=== PATIENT | female | born 1990 | race Two or more races ===

== ENCOUNTER 2024-04-23 12:31 | Emergency (ER) | payer MEDICAID, SELFPAY ==
[2024-04-23 12:50] VITALS: BP 127/84; PULSE 94; RESP 20; TEMP 36.8; O2SAT 98; BMI 43.7
--- NOTE | 2024-04-23 13:16 | XR_ITS ---
Examination: PA lateral chest 2 views Technique: Upright PA lateral chest 2 views Exam date and time: April 23, 2024 1348 hrs. Indications: Chest pain beginning 10 days ago. Findings: Normal heart size Lungs are clear The osseous structures are intact Impression: No active disease
--- NOTE | 2024-04-23 13:16 | PD.EDURI ---
Upper Respiratory Inf. RME/HPI General Chief Complaint: Ear Stated Complaint: RIGHT EAR PAIN, H/A, COUGH X 1 WK; Time Seen by Provider: 04/23/24 12:52 Source: patient Arrival date/time: 04/23/24 12:31 33-year-old female presents emergency department complaining of right ear pain, cough, and headache that is been ongoing for over 1 week. Patient reports recently completed amoxicillin for right ear infection. Mode of arrival: ambulatory Limitations: no limitations Related Data Home Medications ?Medication ?Instructions ?Recorded ?Confirmed cholecalciferol (vitamin D3) 50 50 mcg PO QWEEK 09/30/21 09/30/21 mcg (2,000 unit) tablet (Vitamin D3) sulfamethoxazole 800 1 tab PO BID 09/30/21 09/30/21 mg-trimethoprim 160 mg tablet (Bactrim DS) Previous Rx's ?Medication ?Instructions ?Recorded ibuprofen 800 mg tablet 800 mg PO TID PRN pain #30 tabs 09/17/22 ibuprofen 600 mg tablet 600 mg PO Q6H PRN pain #30 tabs 05/31/23 methocarbamol 500 mg tablet 500 mg PO Q8H PRN muscle pain #30 05/31/23 tabs albuterol sulfate 90 mcg/actuation 2 puff inhalation Q6H PRN 04/23/24 aerosol inhaler (Ventolin HFA) shortness of breath or wheezing #6.7 grams Allergies Allergy/AdvReac Type Severity Reaction Status Date / Time No Known Allergies Allergy Verified 04/23/24 12:33 Review of Systems Review of Systems Systems Reviewed: All systems reviewed, normal except as documented Constitutional Constitutional: Reports system reviewed and no additional complaints, except as documented, Denies body ache(s), Denies chills, Denies fever(s) and Reports headache(s) Eyes Eyes: Reports system reviewed and no additional complaints, except as documented and Denies change in vision ENT Ears, Nose, Mouth, and Throat: Reports system reviewed and no additional complaints, except as documented, Denies disequilibrium, Denies dizziness, Reports otalgia, Reports headache(s), Denies sore throat and Denies vertigo Cardiovascular Cardiovascular: Reports system reviewed and no additional complaints, except as documented, Denies chest pain and Denies dyspnea Respiratory Respiratory: Reports system reviewed and no additional complaints, except as documented, Denies chest congestion, Reports cough and Denies dyspnea Gastrointestinal Gastrointestinal: Reports system reviewed and no additional complaints, except as documented, Denies abdominal pain, Denies nausea and Denies vomiting Musculoskeletal Musculoskeletal: Reports system reviewed and no additional complaints, except as documented, Denies abnormal gait and Denies arthralgias Integumentary/Breasts Skin/Breast: Reports system reviewed and no additional complaints, except as documented, Denies erythema, Denies rash and Denies wounds Neurologic Neurologic: Reports system reviewed and no additional complaints, except as documented, Denies abnormal gait, Denies disequilibrium, Denies dizziness, Reports headache(s) and Denies vertigo Past Medical History Past Medical History NEUROLOGIC: Positive Neurological Disorders and Migraine CARDIAC: Negative Cardiac Disorders or Congestive Heart Failure RESPIRATORY: Negative Chronic Obstructive Pulmonary Disease (COPD) GASTROINTESTINAL: Negative Gastrointestinal Disorders GENITOURINARY: Negative Genitourinary Disorders or Renal Disease MUSCULOSKELETAL: Negative Musculoskeletal Disorders ENDOCRINE: Negative Endocrine Disorders, Diabetes Mellitus Type 1 or Diabetes Mellitus Type 2 HEMATOLOGIC: Negative Blood Disorders Social History SMOKING STATUS: Never smoker SUBSTANCE USE: does not use ED Exam General Limitations: Present no limitations General appearance: Present alert and in no apparent distress Head Head exam: Present atraumatic Eye Eye exam: Present normal appearance, PERRL and EOMI ENT ENT exam: Present normal exam, normal oropharynx and mucous membranes moist Expanded ENT Exam External ear exam: Present normal external inspection Mouth exam: Present normal external inspection Throat exam: Present tonsillar erythema; Absent tonsillomegaly, tonsillar exudate or muffled voice Neck Neck exam: Present normal inspection, full ROM and trachea midline Chest Chest inspection: Present normal inspection and symmetric chest wall rise Respiratory Respiratory exam: Present normal lung sounds bilaterally Cardiovascular Cardiovascular exam: Present regular rate, normal rhythm and normal heart sounds Abdominal Exam Abdominal exam: Present soft and normal bowel sounds Extremities Exam Extremities exam: Present normal inspection and full ROM Back Exam Back exam: Present normal inspection and full ROM Neurological Exam Neurological exam: Present alert, oriented X3 and CN II-XII intact Psychiatric Psychiatric exam: Present normal affect and normal mood Skin Skin exam: Present warm, dry, intact and normal color Course Quality Measures none Orders Category Date Time Status Bedside COVID-19 Antigen Test NOW Care 04/23/24 13:16 Completed Bedside Influenza A&B Antigen Test NOW Care 04/23/24 13:16 Completed XR chest 2V Stat Exams 04/23/24 13:16 Completed Strep A Rapid Stat Lab 04/23/24 13:30 Completed Vital Signs Vital signs: Vital Signs Temperature 98.2 F 04/23/24 12:50 Pulse Rate 94 04/23/24 12:50 Respiratory Rate 20 04/23/24 12:50 Blood Pressure 127/84 04/23/24 12:50 Pulse Oximetry (%) 98 04/23/24 12:50 Oxygen Delivery Method Room Air 04/23/24 12:50 98% RA WNL. Upper Respiratory Infection MDM Narrative MDM Narrative:: 33-year-old female presents emergency department complaining of right ear pain, cough, and headache that is been ongoing for over 1 week. Patient reports recently completed amoxicillin for right ear infection. Chest XR no acute process. Strep, Influenza, and covid swabs negative. Bilateral ears no erythema, bulging tympanic membrane, discharge, or signs of infection. Patient appears non toxic and hemodynamically stable. Patient data External records reviewed:: [facility] previous records Clinical information provided by:: patient Social determinants that could affect healthcare access:: none Patient has the following chronic illnesses:: n/a How is presenting disease/condition affected by chronic disease/condition?: no chronic disease Evaluation data The following diagnostics were reviewed and interpreted by me:: lab results and radiology exam(s) Lab and/or radiology exams considered but not ordered:: ordered Interpretation Summary: interpreted by me Medications / Prescriptions Medications or Prescriptions considered but not ordered:: n/a Medication administrations:: n/a Consultations Consultation(s) initiated? (list below): No Diagnosis Upper Respiratory Differential Diagnosis: upper respiratory infection, croup, otitis media, sinusitis, viral infection, bronchitis, influenza and pharyngitis Most likely diagnosis given after review of the tests above:: viral infection Admission Indicated Admission indicated?: not indicated Admission Request Was there a request for admission?: No Disposition Plan Disposition Plan: Discharge Discharge Attestation Discharge Attestation: The patient and all family members were given an opportunity to ask questions and understood the discharge instructions. Discharge instructions specifically effects, indications for sooner follow up or return to the emergency department, and the expected course of current diagnosis. Patient condition: Stable Discharge Plan Plan Patient Disposition: HOME (Self Care) Disposition Comment: Stable Prescriptions/Referrals Prescriptions/Med Rec: New albuterol sulfate [Ventolin HFA] 90 mcg/actuation HFA aerosol inhaler 2 puff inhalation Q6H PRN (Reason: shortness of breath or wheezing) Qty: 6.7 0RF No Action sulfamethoxazole-trimethoprim [Bactrim DS] 800-160 mg Tablet 1 tab PO BID cholecalciferol (vitamin D3) [Vitamin D3] 50 mcg (2,000 unit) Tablet 50 mcg PO QWEEK ibuprofen 800 mg tablet 800 mg PO TID PRN (Reason: pain) Qty: 30 0RF ibuprofen 600 mg tablet 600 mg PO Q6H PRN (Reason: pain) Qty: 30 0RF methocarbamol 500 mg tablet 500 mg PO Q8H PRN (Reason: muscle pain) Qty: 30 0RF Referrals: Chey Montalvo FNP [Primary Care Provider] - In 1 week Problem List Clinical Impression: Viral syndrome Patient/Caregiver Discharge Instructions Education Materials: ED Viral Syndrome (Adult) Additional Instructions: Take [id number] ibuprofen or Tylenol as needed for fever or pain. Close follow-up with primary care provider in 24 to 48 hours. Use inhaler as needed. Return to the emergency department for any worsening symptoms or as needed. Print Language: Taiwanese Stand Alone Forms: Marika Award Info., Patient Portal Info Letter MARCI/SUSY Supervising Physician MARCI/SUSY Supervising Physician: Dr. Sheldon
[2024-04-23 13:54] LABS: Strep A Rapid Negative (Negative)
--- NOTE | 2024-04-23 16:04 | PC.NURSE ---
Called Radiology about reading xray, per Lianne section laborer states radiologists reading exams right now.
== END 2024-04-23 16:16 | disposition home or self-care (01) ==
PROVIDERS: Emergency Provider Emergency Medicine; PCP Nurse Practitioner Family
DX: B34.9 Viral infection, unspecified (principal)
CPT/HCPCS: 71046; 87400; 87651; 87811; 99283

== ENCOUNTER 2024-04-28 22:23 | Emergency (ER) | payer MEDICAID, SELFPAY ==
[2024-04-28 22:26] VITALS: BMI 43.4
[2024-04-28 23:21] VITALS: BP 169/105; BP 181/117; PULSE 91; RESP 18; TEMP 37.2; O2SAT 96
--- NOTE | 2024-04-29 00:46 | XR_ITS ---
Examination: CT soft tissue neck, without intravenous contrast. 2-D coronal reconstructions. 2-D sagittal reconstructions. Date and time of exam :April 29, 2024 0129 hours INDICATIONS: Right ear and jaw pain beginning one week ago. CTDI: vol (mGy):15.5 DLP: (mGycm):411 Technique: 1.25 mm axial sections of the neck of the obtained. Coronal and sagittal reconstructions have been obtained. Low dose protocols were performed. One or more of the following dose reduction techniques were used; automated exposure control, adjustment of the mA and/or KV according to patient size, use of iterative reconstruction technique. Findings: Symmetrical nasopharynx oropharynx Numerous nonspecific carotid triangle posterior cervical submental lymph nodes The larynx appears normal Thyroid lobes are not enlarged Normal epiglottis Lung apices clear No cortical bone destruction involving the mandible or maxilla Mild chronic mucosal disease ethmoid air cells maxillary antra sphenoid air cells Negative for otitis media Negative for acute mastoiditis IMPRESSION: No osteomyelitis identified Cervical lymphadenopathy as above, suggest ultrasound soft tissue neck 3 month follow-up to document stability of this cervical lymphadenopathy
[2024-04-29] MEDS: DEXAMETHASONE SOD PHOS INJ 10 MG/ML VIAL PO (01:20)
[2024-04-29 02:01] VITALS: PULSE 103; RESP 20; O2SAT 99
[2024-04-29] MEDS: ALBUTEROL/IPRATROPIUM (Duoneb) RT SOL 3 ML NEBU 6 ML INH (02:01)
--- NOTE | 2024-04-29 04:00 | PRELIM_ITS ---
CT scan of the neck without intravenous contrast (axial sections with sagittal and coronal reformats) April 29, 2024 at 0129 hours Clinical History: Right neck/jaw pain; r/o osteomyelitis. Comparison : No prior study is available for comparison. Findings: The nasopharynx, oropharynx, hypopharynx, sup raglottic and infraglottic larynx, vocal cords and upper trachea are unremarkable. The epiglottis and aryepiglottic folds appear unremarkable.The superficial soft tissues of the neck are unremarkable. T he osseous structures are unremarkable. There is mild mucosal thickening in bilateral maxillary sinus es. Impression:No evidence of osteomyelitis. Report Electronically Signed By: Ivan Ponce 04/29/2024 3 :59:46 AM [EST]
[2024-04-29] MEDS: DOXYCYCLINE 100 MG TABLET PO (04:33)
--- NOTE | 2024-04-29 05:26 | EDNOTE_ITS ---
ED Headache RME/HPI General Chief Complaint: General Adult/Misc Complain Stated Complaint: Right ear, jaw pain Time Seen by Provider: 04/29/24 00:14 Arrival date/time: 04/28/24 22:23 33F with history of asthma presents to ED with 2 weeks of R ear/jaw pain. Patient was put on 1 week of Augmentin w/o relief. Separately, patient has had a few days of wheezing. Limitations: no limitations Related Data Home Medications ?Medication ?Instructions ?Recorded ?Confirmed cholecalciferol (vitamin D3) 50 50 mcg PO QWEEK 09/30/21 09/30/21 mcg (2,000 unit) tablet (Vitamin D3) sulfamethoxazole 800 1 tab PO BID 09/30/21 09/30/21 mg-trimethoprim 160 mg tablet (Bactrim DS) Previous Rx's ?Medication ?Instructions ?Recorded ibuprofen 800 mg tablet 800 mg PO TID PRN pain #30 tabs 09/17/22 ibuprofen 600 mg tablet 600 mg PO Q6H PRN pain #30 tabs 05/31/23 methocarbamol 500 mg tablet 500 mg PO Q8H PRN muscle pain #30 05/31/23 tabs albuterol sulfate 90 mcg/actuation 2 puff inhalation Q6H PRN 04/23/24 aerosol inhaler (Ventolin HFA) shortness of breath or wheezing #6.7 grams doxycycline hyclate 100 mg tablet 100 mg PO BID 10 days #20 tabs 04/29/24 prednisone 50 mg tablet 50 mg PO QDAY 5 days #5 tabs 04/29/24 Allergies Allergy/AdvReac Type Severity Reaction Status Date / Time No Known Allergies Allergy Verified 04/28/24 22:29 Review of Systems Review of Systems Systems Reviewed: All systems reviewed, normal except as documented Constitutional Constitutional: Reports system reviewed and no additional complaints, except as documented, Denies fever(s) and Denies headache(s) ENT Ears, Nose, Mouth, and Throat: Reports as per HPI, Denies disequilibrium, Denies headache(s) and Reports other (R jaw/facial pain) Cardiovascular Cardiovascular: Reports system reviewed and no additional complaints, except as documented, Denies chest pain and Denies dyspnea Respiratory Respiratory: Reports system reviewed and no additional complaints, except as documented, Reports as per HPI, Denies cough, Denies dyspnea and Reports wheezing Gastrointestinal Gastrointestinal: Reports system reviewed and no additional complaints, except as documented, Denies abdominal pain, Denies nausea and Denies vomiting Neurologic Neurologic: Reports system reviewed and no additional complaints, except as documented, Denies confusion, Denies disequilibrium and Denies headache(s) Psychiatric Psychiatric: Denies confusion Allergic/Immunologic Allergic/Immunologic: Reports wheezing Past Medical History Past Medical History NEUROLOGIC: Positive Neurological Disorders and Migraine CARDIAC: Negative Cardiac Disorders or Congestive Heart Failure RESPIRATORY: Negative Chronic Obstructive Pulmonary Disease (COPD) GASTROINTESTINAL: Negative Gastrointestinal Disorders GENITOURINARY: Negative Genitourinary Disorders or Renal Disease MUSCULOSKELETAL: Negative Musculoskeletal Disorders ENDOCRINE: Negative Endocrine Disorders, Diabetes Mellitus Type 1 or Diabetes Mellitus Type 2 HEMATOLOGIC: Negative Blood Disorders Social History SMOKING STATUS: Never smoker SUBSTANCE USE: does not use ED Exam General Limitations: Present no limitations General appearance: Present alert and in no apparent distress Head Head exam: Present atraumatic Eye Eye exam: Present normal appearance, PERRL and EOMI ENT ENT exam: Present normal oropharynx, mucous membranes moist and other (mild R cheek/facial swelling) Neck Neck exam: Present normal inspection, full ROM and trachea midline Chest Chest inspection: Present normal inspection and symmetric chest wall rise Respiratory Respiratory exam: Present normal lung sounds bilaterally Cardiovascular Cardiovascular exam: Present regular rate, normal rhythm and normal heart sounds Abdominal Exam Abdominal exam: Present soft and normal bowel sounds Extremities Exam Extremities exam: Present normal inspection and full ROM Back Exam Back exam: Present normal inspection and full ROM Neurological Exam Neurological exam: Present alert, oriented X3 and CN II-XII intact Psychiatric Psychiatric exam: Present normal affect and normal mood Skin Skin exam: Present warm, dry, intact and normal color Course Quality Measures none Orders Category Date Time Status CT soft tissue neck wo con Stat Exams 04/29/24 00:46 Taken Albuterol/Ipratr Rt Madyson [Duoneb Rt Madyson] Med 04/29/24 00:46 Discontinued 6 ml INH X1 ONE Dexamethasone Inj [Decadron Inj] Med 04/29/24 00:46 Discontinued 10 mg PO X1 ONE Doxycycline [Vibramycin] Med 04/29/24 04:20 Discontinued 100 mg PO X1 ONE Vital Signs Vital signs: Vital Signs Temperature 98.9 F 04/28/24 23:21 Pulse Rate 91 04/28/24 23:21 Respiratory Rate 18 04/28/24 23:21 Blood Pressure 181/117 H 04/28/24 23:21 Pulse Oximetry (%) 96 12/05/24 23:21 Oxygen Delivery Method Room Air 04/28/24 23:21 O2 at 96% on RA and WNLs Headache MDM Narrative MDM Narrative:: 33F with history of asthma presents to ED with 2 weeks of R ear/jaw pain. Patient was put on 1 week of Augmentin w/o relief. Separately, patient has had a few days of wheezing. Physical exam reveals mild R cheek swelling, but clear ENT. Some wheezing in lungs. Patient is afebrile, calm, and alert. CT reveals mild sinusitis. Will try doxy as it is also anti-inflammatory. Steroids/breathing tx relieved wheezing. Patient data External records reviewed:: [facility] previous records Clinical information provided by:: patient Social determinants that could affect healthcare access:: none Patient has the following chronic illnesses:: asthma How is presenting disease/condition affected by chronic disease/condition?: no chronic disease Evaluation data The following diagnostics were reviewed and interpreted by me:: radiology exam(s) and other (specify) Lab and/or radiology exams considered but not ordered:: ordered Interpretation Summary: above Medications / Prescriptions Medications or Prescriptions considered but not ordered:: ordered Medication administrations:: Medication Administration History Discontinued Medications Albuterol/Ipratropium (Albuterol/Ipratropium (Duoneb) Rt Madyson 3 Ml Nebu) 6 ml INH X1 ONE Stop: 04/29/24 00:47 Last Admin: 04/29/24 02:01 Dose: 6 ml Documented By: RADHA Dexamethasone Sodium Phosphate (Dexamethasone Sod Phos Inj 10 Mg/Ml Vial) 10 mg PO X1 ONE Stop: 04/29/24 00:47 Last Admin: 04/29/24 01:20 Dose: 10 mg Documented By: ANA Comments: Pt given med PO Doxycycline Hyclate (Doxycycline 100 Mg Tablet) 100 mg PO X1 ONE Stop: 04/29/24 04:21 Last Admin: 04/29/24 04:33 Dose: 100 mg Documented By: ANA above Consultations Consultation(s) initiated? (list below): No Diagnosis Differential diagnosis headache: migraine, tension headache, subarachnoid hemorrhage, headache, meningitis, sinusitis, postconcussion syndrome and other (asthma exacerbation) Most likely diagnosis given after review of the tests above:: asthma exacerbation and sinusitis Admission Indicated Admission indicated?: not indicated Admission Request Was there a request for admission?: No Disposition Plan Disposition Plan: Discharge Discharge Attestation Discharge Attestation: The patient and all family members were given an opportunity to ask questions and understood the discharge instructions. Discharge instructions specifically effects, indications for sooner follow up or return to the emergency department, and the expected course of current diagnosis. Patient condition: Stable Discharge Plan Plan Patient Disposition: HOME (Self Care) Disposition Comment: Stable Prescriptions/Referrals Prescriptions/Med Rec: New doxycycline hyclate 100 mg tablet 100 mg PO BID 10 Days Qty: 20 0RF prednisone 50 mg tablet 50 mg PO QDAY 5 Days Qty: 5 0RF No Action sulfamethoxazole-trimethoprim [Bactrim DS] 800-160 mg Tablet 1 tab PO BID cholecalciferol (vitamin D3) [Vitamin D3] 50 mcg (2,000 unit) Tablet 50 mcg PO QWEEK ibuprofen 800 mg tablet 800 mg PO TID PRN (Reason: pain) Qty: 30 0RF ibuprofen 600 mg tablet 600 mg PO Q6H PRN (Reason: pain) Qty: 30 0RF methocarbamol 500 mg tablet 500 mg PO Q8H PRN (Reason: muscle pain) Qty: 30 0RF albuterol sulfate [Ventolin HFA] 90 mcg/actuation HFA aerosol inhaler 2 puff inhalation Q6H PRN (Reason: shortness of breath or wheezing) Qty: 6.7 0RF Referrals: Chey Montalvo FNP [Primary Care Provider] - In 1 week Problem List Clinical Impression: Sinusitis, Asthma exacerbation Patient/Caregiver Discharge Instructions Education Materials: ED Sinusitis (No Antibiotics) Additional Instructions: Please follow-up with PCP within 24-48 hours and return immediately if symptoms worsen. Use rescue (albuterol) inhaler as needed. Print Language: Upper Sorbian Stand Alone Forms: Patient Portal Info Letter MARCI/SUSY Supervising Physician MARCI/SUSY Supervising Physician: Dr. Andrade
== END 2024-04-29 04:27 | disposition home or self-care (01) ==
PROVIDERS: Emergency Provider Emergency Medicine; PCP Nurse Practitioner Family
DX: J45.901 Unspecified asthma with (acute) exacerbation (principal); J32.8 Other chronic sinusitis
CPT/HCPCS: 70490; 94640; 99284; A9270; J1100

== ENCOUNTER 2024-06-03 16:15 | Emergency (ER) | payer MEDICAID, SELFPAY ==
[2024-06-03 16:15] VITALS: BMI 44.2
[2024-06-03 16:23] VITALS: BP 132/95; PULSE 71; RESP 20; TEMP 37.1; O2SAT 97
[2024-06-03] MEDS: DEXAMETHASONE SOD PHOS INJ 10 MG/ML VIAL IM (16:54)
[2024-06-03] MEDS: FAMOTIDINE 20 MG TABLET 40 MG PO (16:54)
[2024-06-03] MEDS: DiphenhydrAMINE 25 MG CAPSULE 50 MG PO (16:54)
--- NOTE | 2024-06-03 18:00 | EDNOTE_ITS ---
ED Allergic Reaction RME/HPI General Chief complaint: Allergic Reaction Stated complaint: LIPS SWELLING/TINGLING x 37 MINUTES Time Seen by Provider: 06/03/24 16:33 Arrival date/time: 06/03/24 16:15 33-year-old female presents the emergency department complains of lip swelling patient reports symptoms are approximate 30 minutes ago patient reports she is not on any new medications and she does not take any PATRICK inhibitor's. Patient reports no chance of Limitations: no limitations Related Data Home Medications ?Medication ?Instructions ?Recorded ?Confirmed cholecalciferol (vitamin D3) 50 50 mcg PO QWEEK 09/30/21 09/30/21 mcg (2,000 unit) tablet (Vitamin D3) sulfamethoxazole 800 1 tab PO BID 09/30/21 09/30/21 mg-trimethoprim 160 mg tablet (Bactrim DS) Previous Rx's ?Medication ?Instructions ?Recorded ibuprofen 800 mg tablet 800 mg PO TID PRN pain #30 tabs 09/17/22 ibuprofen 600 mg tablet 600 mg PO Q6H PRN pain #30 tabs 05/31/23 methocarbamol 500 mg tablet 500 mg PO Q8H PRN muscle pain #30 05/31/23 tabs albuterol sulfate 90 mcg/actuation 2 puff inhalation Q6H PRN 04/23/24 aerosol inhaler (Ventolin HFA) shortness of breath or wheezing #6.7 grams diphenhydramine HCl 25 mg capsule 25 mg PO Q8H PRN allergic symptoms 06/03/24 (Benadryl) #30 caps prednisone 10 mg tablet 30 mg (3 x 10 mg) PO BID 3 days 06/03/24 #18 tabs Allergies Allergy/AdvReac Type Severity Reaction Status Date / Time No Known Allergies Allergy Verified 06/03/24 16:17 Review of Systems Review of Systems Systems Reviewed: All systems reviewed, normal except as documented Constitutional Constitutional: Reports system reviewed and no additional complaints, except as documented, Denies fever(s) and Denies headache(s) Eyes Eyes: Reports system reviewed and no additional complaints, except as documented and Denies blurry vision ENT Ears, Nose, Mouth, and Throat: Reports system reviewed and no additional complaints, except as documented, Denies headache(s), Denies nasal congestion, Denies nasal discharge and Reports other (Swelling lower lip) Cardiovascular Cardiovascular: Reports system reviewed and no additional complaints, except as documented, Denies chest pain and Denies dyspnea Respiratory Respiratory: Reports system reviewed and no additional complaints, except as documented, Denies chest congestion, Denies cough and Denies dyspnea Gastrointestinal Gastrointestinal: Reports system reviewed and no additional complaints, except as documented and Denies abdominal pain Integumentary/Breasts Skin/Breast: Reports system reviewed and no additional complaints, except as documented and Denies rash Neurologic Neurologic: Reports system reviewed and no additional complaints, except as documented, Reports as per HPI and Denies headache(s) Past Medical History Past Medical History NEUROLOGIC: Positive Neurological Disorders and Migraine CARDIAC: Negative Cardiac Disorders or Congestive Heart Failure RESPIRATORY: Negative Chronic Obstructive Pulmonary Disease (COPD) GASTROINTESTINAL: Negative Gastrointestinal Disorders GENITOURINARY: Negative Genitourinary Disorders or Renal Disease MUSCULOSKELETAL: Negative Musculoskeletal Disorders ENDOCRINE: Negative Endocrine Disorders, Diabetes Mellitus Type 1 or Diabetes Mellitus Type 2 HEMATOLOGIC: Negative Blood Disorders Social History SMOKING STATUS: Never smoker SUBSTANCE USE: does not use ED Exam General Limitations: Present no limitations General appearance: Present alert and in no apparent distress Head Head exam: Present atraumatic Eye Eye exam: Present normal appearance, PERRL and EOMI ENT ENT exam: Present mucous membranes moist and other (Lip swelling ) Neck Neck exam: Present normal inspection, full ROM and trachea midline Chest Chest inspection: Present normal inspection and symmetric chest wall rise Respiratory Respiratory exam: Present normal lung sounds bilaterally Cardiovascular Cardiovascular exam: Present regular rate, normal rhythm and normal heart sounds Abdominal Exam Abdominal exam: Present soft and normal bowel sounds Extremities Exam Extremities exam: Present normal inspection and full ROM Back Exam Back exam: Present normal inspection and full ROM Neurological Exam Neurological exam: Present alert, oriented X3 and CN II-XII intact Psychiatric Psychiatric exam: Present normal affect and normal mood Skin Skin exam: Present warm, dry, intact and normal color Course Quality Measures none Orders Category Date Time Status Dexamethasone Inj [Decadron Inj] Med 06/03/24 16:37 Discontinued 10 mg IM X1 ONE DiphenhydrAMINE [Benadryl] Med 06/03/24 16:37 Discontinued 50 mg PO X1 ONE Famotidine [Pepcid] Med 06/03/24 16:37 Discontinued 40 mg PO X1 ONE Vital Signs Vital signs: Vital Signs Temperature 98.8 F 06/03/24 16:23 Pulse Rate 71 06/03/24 16:23 Respiratory Rate 20 06/03/24 16:23 Blood Pressure 132/95 H 06/03/24 16:23 Pulse Oximetry (%) 97 06/03/24 16:23 Oxygen Delivery Method Room Air 06/03/24 16:23 O2 saturation 97% room air within normal limits Allergic Reaction MDM Narrative MDM Narrative:: 33-year-old female presents the emergency department complains of lip swelling patient reports symptoms are approximate 30 minutes ago patient reports she is not on any new medications and she does not take any PATRICK inhibitor's. Patient reports no chance of On exam patient well-appearing patient does not appear ill or toxic and in no acute distress Patient has no evidence of anaphylaxis Patient does have mild swelling of her lower lip Patient discharged home in no distress to follow-up with primary care doctor in the next 24 to 48 hours and for any worsening symptoms to return to the ER immediately Patient data External records reviewed:: [facility] previous records Clinical information provided by:: patient Social determinants that could affect healthcare access:: none Patient has the following chronic illnesses:: None How is presenting disease/condition affected by chronic disease/condition?: no chronic disease Evaluation data The following diagnostics were reviewed and interpreted by me:: other (specify) (N/A) Lab and/or radiology exams considered but not ordered:: Given Interpretation Summary: Given Medications / Prescriptions Medications or Prescriptions considered but not ordered:: Given Medication administrations:: Medication Administration History Discontinued Medications Dexamethasone Sodium Phosphate (Dexamethasone Sod Phos Inj 10 Mg/Ml Vial) 10 mg IM X1 ONE Stop: 06/03/24 16:38 Last Admin: 06/03/24 16:54 Dose: 10 mg Documented By: OA Diphenhydramine HCl (Diphenhydramine 25 Mg Capsule) 50 mg PO X1 ONE Stop: 06/03/24 16:38 Last Admin: 06/03/24 16:54 Dose: 50 mg Documented By: OA Famotidine (Famotidine 20 Mg Tablet) 40 mg PO X1 ONE Stop: 06/03/24 16:38 Last Admin: 06/03/24 16:54 Dose: 40 mg Documented By: OA Given Consultations Consultation(s) initiated? (list below): No Diagnosis Differential Diagnosis allergic reaction: anaphylaxis, allergic reaction and urticaria Most likely diagnosis given after review of the tests above:: Allergic reaction Admission Indicated Admission indicated?: not indicated Admission Request Was there a request for admission?: No Disposition Plan Disposition Plan: Discharge Discharge Attestation Discharge Attestation: The patient and all family members were given an opportunity to ask questions and understood the discharge instructions. Discharge instructions specifically effects, indications for sooner follow up or return to the emergency department, and the expected course of current diagnosis. Patient condition: Stable Discharge Plan Plan Patient Disposition: HOME (Self Care) Disposition Comment: Stable Prescriptions/Referrals Prescriptions/Med Rec: New prednisone 10 mg tablet 30 mg PO BID 3 Days Qty: 18 0RF diphenhydramine HCl [Benadryl] 25 mg capsule 25 mg PO Q8H PRN (Reason: allergic symptoms) Qty: 30 0RF No Action sulfamethoxazole-trimethoprim [Bactrim DS] 800-160 mg Tablet 1 tab PO BID cholecalciferol (vitamin D3) [Vitamin D3] 50 mcg (2,000 unit) Tablet 50 mcg PO QWEEK ibuprofen 800 mg tablet 800 mg PO TID PRN (Reason: pain) Qty: 30 0RF ibuprofen 600 mg tablet 600 mg PO Q6H PRN (Reason: pain) Qty: 30 0RF methocarbamol 500 mg tablet 500 mg PO Q8H PRN (Reason: muscle pain) Qty: 30 0RF albuterol sulfate [Ventolin HFA] 90 mcg/actuation HFA aerosol inhaler 2 puff inhalation Q6H PRN (Reason: shortness of breath or wheezing) Qty: 6.7 0RF Referrals: Chey Montalvo FNP [Primary Care Provider] - In 1 week Problem List Clinical Impression: Allergic reaction Patient/Caregiver Discharge Instructions Education Materials: ED Medicine Reaction: Allergic Additional Instructions: Please follow up with your primary care doctor in the next 24-48hrs for any worsening symptoms return here immediately Print Language: [place] Stand Alone Forms: Marika Award Info., Patient Portal Info Letter MARCI/SUSY Supervising Physician MARCI/SUSY Supervising Physician: Dr. Gilmore
== END 2024-06-03 18:46 | disposition home or self-care (01) ==
PROVIDERS: Emergency Provider Emergency Medicine; PCP Nurse Practitioner Family
DX: R22.0 Localized swelling, mass and lump, head (principal)
CPT/HCPCS: 96372; 99283; J1100; A9270